=== PATIENT | female | born 1975 | race Caucasian/White ===

== ENCOUNTER 2020-12-16 09:41 | Outpatient (CLI) | payer BC, SELFPAY ==
--- NOTE | ~2020-12-16 | MM_ITS ---
EXAMINATION: MM screening angelika BI w margoth HISTORY: Screening mammogram TECHNIQUE: Craniocaudal and mediolateral oblique 3-D tomosynthesis images were obtained and synthetic 2-D images were generated. CAD analysis was submitted and interpreted. COMPARISON: No prior mammogram is available for comparison at this institution. BREAST PARENCHYMAL COMPOSITION: The breasts are heterogeneously dense, which may obscure small masses . FINDINGS: RIGHT BREAST: There is asymmetry in the middle third of the inner breast 4 cm from the nipple on the craniocaudal view. LEFT BREAST: There is no evidence of suspicious mass, calcification, or architectural distortion to s uggest malignancy. IMPRESSION: 1. Right breast asymmetry on the craniocaudal view. 2. Additional mammographic views and possible breast ultrasound are recommended. BI-RADS Category 0: Incomplete: Needs additional imaging evaluation. Reviewed, dictated and finalized at location A. IMPRESSION: 1. Right breast asymmetry on the craniocaudal view. 2. Additional mammographic views and possible breast ultrasound are recommended . BI-RADS Category 0: Incomplete: Needs additional imaging evaluation.
== END 2020-12-16 09:42 | disposition home or self-care (01) ==
LOC: ANHIMG 09:48
PROVIDERS: PCP Advanced Practice Midwife; Visit Provider Advanced Practice Midwife
DX: Z12.31 Encounter for screening mammogram for malignant neoplasm of breast (principal); R92.8 Other abnormal and inconclusive findings on diagnostic imaging of breast
CPT/HCPCS: 77063; 77067

== ENCOUNTER 2020-12-30 09:38 | Outpatient (CLI) | payer BC, SELFPAY ==
--- NOTE | ~2020-12-30 | MMUS_ITS ---
EXAMINATION: MM diagnostic mammo unilat RT, US breast RT complete HISTORY: Right breast mammographic asymmetry on 12/16/2020 screening mammogram TECHNIQUE: Additional 3-D tomosynthesis images of the right breast were performed and synthetic 2-D i mages were generated. CAD analysis was submitted and interpreted. High resolution complete right effie st ultrasound was performed. COMPARISON: 12/16/2020 bilateral digital screening mammogram FINDINGS: MAMMOGRAPHIC FINDINGS: There is heterogeneous dense stroma of the breasts which may obscure masses. Partially circumscribed lesion with halo sign suggest cysts. ULTRASOUND: There is dense tissue, with associated prominent posterior shadowing particularly at C4-5 o'clock and 6:00. There are numerous simple and complicated cysts. There is a 5.5 mm simple cyst with through tr ansmission and posterior enhancement at 12:00 3 cm from the nipple. There are numerous cysts at the 4 :00 and 5:00 area measuring up to almost 7 mm maximal dimension. 5 mm cyst at 9:00 5 cm from nipple. 1.7 x 3.9 x 4.2 mm cyst at 10:00 6 cm from nipple. No suspicious solid lesion or suspicious shadowing is evident. IMPRESSION: 1. No mammographic evidence of malignancy 2. Routine annual mammographic screening is recommended. BI-RADS Category 2: Benign finding(s). Reviewed, dictated and finalized at location A. IMPRESSION: 1. No mammographic evidence of malignancy 2. Routine annual mammographic screening is recommended. BI-RADS Category 2: Benign finding(s).
== END 2020-12-30 09:39 | disposition home or self-care (01) ==
LOC: CHSIMG 09:42
PROVIDERS: PCP Family Medicine; Visit Provider Advanced Practice Midwife
DX: R92.8 Other abnormal and inconclusive findings on diagnostic imaging of breast (principal)
CPT/HCPCS: 76641; 77065